=== PATIENT | female | born 1990 | race Caucasian/White ===

== ENCOUNTER 2024-06-17 16:37 | Emergency (ER) | payer SELFPAY ==
[2024-06-17 16:40] VITALS: BP 123/101; PULSE 88; RESP 20; TEMP 36.7; O2SAT 98
--- NOTE | 2024-06-17 17:34 | ED.DENTAL ---
HPI - Dental/Oral General Chief complaint: Dental/Oral Stated complaint: Toothache/Facial Swelling History of Present Illness HPI Narrative: patient is a 33-year-old female, presents to [facility] with right upper dental pain for the past 4 days with associated swelling. She reports chronic dental decay with recurrent infections. She does not have an established dentist as she has not had anyone to take her insurance thus far. She denies associated fevers or chills, she has no throat tongue or lip swelling. She is taking [id number] ibuprofen for discomfort with some relief. She denies chance of . She has no other complaints. Related Data Allergies Allergy/AdvReac Type Severity Reaction Status Date / Time No Known Allergies Allergy Verified 06/17/24 17:07 Review of Systems ENT: Comments: refer to HPI Exam Const: General: cooperative, healthy appearing, comfortable and no acute distress Nutritional Appearance: average body habitus, well nourished and obese Orientation/consciousness: oriented to person and oriented to place Limitations: no limitations HENMT: Head: normal to inspection Ears: hearing grossly normal bilaterally and external ears normal Face/Nose/Sinus: Normal external nose present, Normal nares present and No nasal polyps present Mouth: Yes Normal oral and palatal mucosa present, Yes lip normal and Yes tongue normal Teeth and gingiva: poor dentition Other: patient has diffuse dental decay, the majority of her teeth are eroded below the gingival line. She has gingival erythema to the right upper anterior teeth diffusely with some mild swelling to the right maxillary region. She has no overlying if erythema to the skin surface of the face. No trismus, no fluctuant abscess noted Eyes: Alignment and Position: alignment normal Periorbital: periorbital findings normal Eyelids: eyelids normal Conjunctivae: conjunctivae normal Sclera: sclerae normal Neck: Neck: normal visual inspection, full ROM, no lymphadenopathy and no meningeal signs Lymphatic: no lymphadenopathy noted Resp: Effort & Inspection: normal respiratory effort Auscultation: clear to auscultation bilaterally Percussion: percussion normal Cardio: Rate: regular rate Rhythm: regular rhythm Heart sounds: S1 normal heart sound present and S2 normal heart sound present Peripheral pulses: Peripheral pulses 2+ throughout Back/Spine/Pelvis: Back: no CVA tenderness Skin: General skin exam: normal color Lesions: no lesions Rashes: no rashes Neuro: General: oriented to person, oriented to place, oriented to time and patient oriented x3 Cranial nerves: Yes CN's II-XII intact bilaterally Gait exam (Neuro): Normal gait present Extrem: General: normal to inspection, full ROM and capillary refill normal Course Course Emergency Course: Oral antibiotics, chlorhexidine mouthwash, dental follow-up stressed Level of Care: Express Care Visit ([id number]) Vital Signs Vital signs: Vital Signs Temperature 36.7 C 06/17/24 16:40 Pulse Rate 88 06/17/24 16:40 Respiratory Rate 20 06/17/24 16:40 Blood Pressure 123/101 H 06/17/24 16:40 Pulse Oximetry 98 06/17/24 16:40 Oxygen Delivery Room Air 06/17/24 16:40 Temperature 36.7 C 06/17/24 16:40 Pulse Rate 88 06/17/24 16:40 Respiratory Rate 06/17/24 16:40 Blood Pressure 123/101 H 06/17/24 16:40 Pulse Oximetry 98 06/17/24 16:40 Oxygen Delivery Room Air 06/17/24 16:40 MDM - Dental/Oral MDM Narrative Medical decision making narrative: clindamycin, [id number] probiotic, chlorhexidine mouthwash, dental follow-up stressed, ER if facial edema worsens or if fevers arise Differential Diagnosis Differential diagnosis: Likely gingival abscess, dental caries, toothache and dental abscess Discharge Plan Discharge Clinical Impression: Dental abscess Patient Disposition: Home, Self-Care Condition: Stable Instructions: Anti
== END 2024-06-17 17:49 | disposition home or self-care (01) ==
PROVIDERS: Emergency Provider Nurse Practitioner Family
DX: K04.7 Periapical abscess without sinus (principal)
CPT/HCPCS: 99213; G0463

== ENCOUNTER 2025-06-04 16:18 | Emergency (ER) | payer MEDICAID, SELFPAY ==
[2025-06-04 16:22] VITALS: BP 146/91; PULSE 79; RESP 18; TEMP 36.3; O2SAT 98
--- OUTSIDE RECORDS SUMMARY | 2025-06-04 16:37 | XMS_ITS | Clinical Summary ---
Author Organization [facility] Address [address] [place] [address] Care Team Providers Care Office Services Specialist Name Role Phone No, Physician Primary Care Provider [phone] Allergies No known active allergies Medications omeprazole (PriLOSEC) 20 mg capsule Take 1 capsule (20 mg total) by mouth daily Active mupirocin (BACTROBAN) 2 % ointmentIndicat ions:Impetigo Apply topically 3 (three) times a day 22 g 3 Active Active Problems Problem Noted Date Diagnosed Date Dental caries 03/16/2023 Tobacco dependence 03/16/2023 GERD (gastroesophageal reflux disease) 3 Leukocytosis 03/16/2023 Facial cellulitis 03/15/2023 Surgical History Surgery Date Site/Laterality Comments TONSILLECTOMY 09/18/2001 - 09/17/2002 Social History Tobacco Use Types Packs/Day Years Used Date Smoking Tobacco: Every Day Cigarettes Smokeless Tobacco: Never Tobacco Cessation:Ready to Q uit: Not Asked; Counseling Given: Not Answered AUDIT-C Answer Date Recorded Q1: How often do you have a drink containing alc ohol? 2-4 times a month 03/15/2023 Q2: How many drinks containi ng alcohol do you have on a typical day when you are drinking? 1 or 2 03/15/2023 Q3: How often do you have si x or more drinks on one occasion? Never 03/15/2023 Personal Safety Answer Date Recorded Have you ever been in or are you currently in a harmful physical or emotional relationship or is someone making you feel afraid or unsafe? 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 Gender Identity Not on file Sexual Orientation Not on file Obstetrics History Last Filed Vital Signs Vital Sign Reading Time Taken Comments Blood Pressure 113/75 03/18/2023 7:25 AM CDT Pulse 50 03/18/2023 7:25 AM CDT Temperature 36.7 C (98 F) 03/18/2023 7:25 AM CDT Respiratory Rate 16 03/18/2023 7:25 AM CDT Oxygen Saturation 97% 03/18/2023 7:25 AM CDT Inhaled Oxygen Concentration - - Weight 106.2 kg (234 lb 2.1 oz) 03/15/2023 9:29 PM CDT Height 170.2 cm (5' 7) 03/15/2023 9:29 PM CDT Body Mass Index 36.67 03/15/2023 9:29 PM CDT Plan of Treatment Health Maintenance Due Date Last Done Comments Cervical Cancer Screening 1992 Depression Screening 1992 Hepatitis C Screening 1992 Varicella Vaccines (1 of 2 - 13+ 2-dose series) 2005 HPV Vaccines (2 - 2-dose series) 11/07/2007 05/07/20 07 Regular Well Visit/Exam 18-64 2010 Pneumococcal vaccine <65 (1 of 2 - PCV) 2011 Influenza Vaccine (#1) 2025 DTaP/Tdap/Td Vaccine (7 - Td or Tdap) 04/13/2027 04/13/2017, 05/07/2007, 05/21/1998, Additional history exists Hepatitis B Screening Completed 01/08/2004 , 05/01/2003, 05/21/1998 Insurance [facility] IDPA Advance Directives For more information, please contact: [phone] * Full Code (Latest Code Status on File) Date Activated Date Inactivated Comments 03/15/2023 7:48 PM 03/18/2023 7:20 PM Care Teams Office Services Specialist Relationship Specialty Start Date End Date No, Physician PCP - General 11/18/20
--- OUTSIDE RECORDS SUMMARY | 2025-06-04 16:37 | XMS_ITS | Clinical Summary ---
Author Organization [facility] Address [address] [place] [address] Phone Care Team Providers Care [employer] Services Program Associate Name Role Phone Provider, None Primary Care Provider Unavailabl e Allergies No known active allergies Medications HYDROcodone-nia taminophen (NORCO) 5-325 MG TabletIndicatio ns:Dental abscess Take 1 Tablet by mouth every 8 hours as needed for Moderate or more severe pain. 12 Tablet 11/11/2023 Active HYDROcodone-nia taminophen (NORCO) 5-325 MG TabletIndicatio ns:Dentalgia Take 1-2 Tablets by mouth every 6 hours as needed for Moderate or more severe pain. 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 Gender Identity Not on file Sexual Orientation Not on file Last Filed Vital Signs Vital Sign Reading Time Taken Comments Blood Pressure 116/78 02/05/2024 4:33 PM CDT Pulse 91 02/05/2024 4:33 PM CDT Temperature 36.1 C (97 F) 02/05/2024 4:33 PM CDT Respiratory Rate 16 02/05/2024 4:33 PM CDT Oxygen Saturation 98% 02/05/2024 4:33 PM CDT Inhaled Oxygen Concentration - - Weight 94 kg (207 lb 3.7 oz) 02/05/2024 4:33 PM CDT Height 172.7 cm (5' 8) 02/05/2024 4:33 PM CDT Body Mass Index 31.51 02/05/2024 4:33 PM CDT Plan of Treatment Not on file Care Teams [employer] Services Program Associate Relationship Specialty Start Date End Date Provider, None [place] PCP - General 11/11/23
--- NOTE | 2025-06-04 16:47 | ED_ITS ---
HPI - Dental/Oral General Chief complaint: Dental/Oral Stated complaint: tooth infection Time Seen by Provider: 06/04/25 16:39 Source: patient and RN notes reviewed Mode of arrival: ambulatory Limitations: no limitations History of Present Illness HPI Narrative: Patient presents today complaining of upper and lower posterior left dental pain x1 week. States she has multiple broken teeth. She has tried ibuprofen, Tylenol, and Orajel. No recent antibiotic use. Currently rates her pain 10/10. Related Data Allergies Allergy/AdvReac Type Severity Reaction Status Date / Time No Known Allergies Allergy Verified 06/04/25 16:24 PMFSH Comments At time of signature, I have reviewed and agree with nursing past medical, surgical, social and family history unless otherwise noted. Please see nursing chart for further information. There is no relevant family history pertinent to the presenting complaint Exam Narrative: GENERAL: Well-appearing, well-nourished, and in no acute distress. HEAD: Normocephalic, atraumatic. EYES: EOMI. No redness or drainage. Conjunctivae normal. ENT: Mucous membranes pink and moist. Gross dental decay. Most teeth are black in color broken the gumline. Patient's left upper posterior gum line is erythematous. No obvious periapical abscess. NECK: Normal AROM. Supple. No lymphadenopathy. CHEST: No respiratory distress. EXTREMITIES: Normal range of motion. No edema. SKIN: Warm, dry, no rash. Capillary refill normal. Normal skin turgor. NEURO: No focal deficits. Alert and oriented x3. Gait steady. PSYCH: Normal affect. No signs of depression or anxiety. Course Course Level of Care: Express Care Visit Vital Signs Vital signs: Vital Signs Temperature 97.4 F L 06/04/25 16:22 Pulse Rate 79 06/04/25 16:22 Respiratory Rate 18 06/04/25 16:22 Blood Pressure 146/91 H 06/04/25 16:22 Pulse Oximetry 98 06/04/25 16:22 Oxygen Delivery Room Air 06/04/25 16:22 Temperature 97.4 F L 06/04/25 16:22 Pulse Rate 79 06/04/25 16:22 Respiratory Rate 18 06/04/25 16:22 Blood Pressure 146/91 H 06/04/25 16:22 Pulse Oximetry 98 06/04/25 16:22 Oxygen Delivery Room Air 06/04/25 16:22 Reviewed MDM - Dental/Oral MDM Narrative Medical decision making narrative: 34-year-old female patient presents today with a one-week history of dental pain. She has tried Tylenol, ibuprofen, and Orajel without much improvement. She has not followed up with a dentist due to insurance concerns, but will be able to shortly. Upon exam, patient has gross dental decay and some erythematous gingiva without obvious abscess. She will be treated with some Augmentin and a prescription for ibuprofen will also be sent to the pharmacy. Recommend following up with a dentist as soon as possible for further evaluation. Vital signs stable. Differential Diagnosis Differential diagnosis: Likely gingival abscess, dental caries, toothache, dental abscess and fracture of tooth Critical Care Time Critical Care Time Critical Care Time: No Discharge Plan Discharge Clinical Impression: Dental caries Patient Disposition: Home Condition: Stable Instructions: Dental Abscess (ED) Additional Instructions: Please take the Augmentin and Motrin as prescribed. Follow-up with a dentist as soon as possible for further evaluation. If you develop worsening symptoms such as fever greater than 100.3, shortness of breath, or difficulty swallowing, please go to the ER immediately for further evaluation and treatment. Your blood pressure was elevated above 120/80 today at Urgent Care. This puts you above the threshold for follow up. Please schedule a followup visit with your personal physician as soon as possible, for further evaluation and treatment. Even blood pressure exceeding 120/80 may indicate pre-hypertension. Patient Language: Belarusian Prescriptions: New amoxicillin-pot clavulanate 875-125 mg tablet 1 tablet PO Q12H 10 Days Qty: 20 0RF ibuprofen 800 mg tablet 800 mg PO TID PRN (Reason: pain) Qty: 20 0RF Follow-up/Referrals: PHYSICIAN,PLASTIC SURGERY NURSE [Primary Care Provider, Internal Medicine] Time of Disposition: 16:52
== END 2025-06-04 16:57 | disposition home or self-care (01) ==
PROVIDERS: Emergency Provider Nurse Practitioner
DX: K02.9 Dental caries, unspecified (principal)
CPT/HCPCS: 99213; G0463